=== PATIENT | male | born 1980 | race Caucasian/White ===

== ENCOUNTER 2025-01-12 10:05 | Outpatient (CLI) | payer OTHER, SELFPAY | END 2025-01-12 10:06 | disposition home or self-care (01) | LOC: NFLDREF 01-18 12:10 | PROVIDERS: Visit Provider Family Medicine | DX: Z00.00 Encounter for general adult medical examination without abnormal findings (principal); I10 Essential (primary) hypertension; R07.89 Other chest pain | CPT/HCPCS: 80053; 80061 ==